=== PATIENT | female | born 1945 | race Caucasian/White ===

== ENCOUNTER 2016-11-17 11:11 | Day surgery (SDC) | payer MEDICARE ==
[2016-11-16 11:52] VITALS: BP 142/75
[2016-11-16 12:52] LABS: BLOOD UREA NITROGEN 19 mg/dL (7-18)
[~2016-11-17] VITALS: Ht 165.1 cm; Wt 116.8 kg
[~2016-11-17 11:11] MED LIST: ACET-76 PO; ANALPRAM TP; ATEN50TA41 PO; ATOR20TA PO; CALC-545 PO; CHOL10002 PO; DIAZ5TAB4 PO; ESOM40CA PO; FLUT12HF3 IH; FURO20TA3 PO; GABA100C PO; IMMODIUM PO; IPRA12.9 NS; LOSA100T6 PO; MAG PO; RIVA20TA PO; SENN1TAB67 PO; SIMV40TA3 PO; TRAM100T3 PO; TRAM50TA2 PO; VITAMIN D PO
== END 2016-11-17 12:30 | disposition home or self-care (01) ==
LOC: CACL 11:11 → EDSTATUS 13:00
PROVIDERS: ATTEND Internal Medicine Cardiovascular Disease
DX: I48.0 Paroxysmal atrial fibrillation (principal); Z53.8 Procedure and treatment not carried out for other reasons; E78.2 Mixed hyperlipidemia; Z86.73 Personal history of transient ischemic attack (TIA), and cerebral infarction without residual deficits; I10 Essential (primary) hypertension; G47.36 Sleep related hypoventilation in conditions classified elsewhere; I25.10 Atherosclerotic heart disease of native coronary artery without angina pectoris; E78.00 Pure hypercholesterolemia, unspecified; Z88.6 Allergy status to analgesic agent; Z88.3 Allergy status to other anti-infective agents; Z88.8 Allergy status to other drugs, medicaments and biological substances; Z91.018 Allergy to other foods; I48.92 Unspecified atrial flutter
CPT/HCPCS: 36415; 71020; 80048; 85025; 85610; 85730; 93005

== ENCOUNTER → 2017-01-21 | Outpatient (CLI) | payer MEDICARE | END | disposition home or self-care (01) | LOC: CVU 14:46 | PROVIDERS: ATTEND Internal Medicine Cardiovascular Disease | DX: E04.1 Nontoxic single thyroid nodule (principal); E07.9 Disorder of thyroid, unspecified; I10 Essential (primary) hypertension; E78.5 Hyperlipidemia, unspecified; E11.9 Type 2 diabetes mellitus without complications; I48.91 Unspecified atrial fibrillation; J45.909 Unspecified asthma, uncomplicated; K21.9 Gastro-esophageal reflux disease without esophagitis; E03.9 Hypothyroidism, unspecified; I25.2 Old myocardial infarction; G89.29 Other chronic pain; R53.83 Other fatigue | CPT/HCPCS: 76536; C8929 ==

== ENCOUNTER → 2017-02-02 | Outpatient (CLI) | payer MEDICARE ==
[~2017-02-02] MED LIST changes: +OMNIPAQUE 350 MG/ML, 100ML BOTTLE ONE
== END | disposition home or self-care (01) ==
LOC: CFH 14:30
PROVIDERS: ATTEND Physician Assistant
DX: E04.1 Nontoxic single thyroid nodule (principal)
CPT/HCPCS: 70491; Q9967

== ENCOUNTER 2017-02-15 09:00 | Inpatient (IN) | payer MEDICARE ==
[~2017-02-15] VITALS: Ht 165.1 cm; Wt 130.8 kg
[~2017-02-15 09:00] MED LIST changes: -OMNIPAQUE 350 MG/ML, 100ML BOTTLE ONE
[2017-02-15 10:20] VITALS: BP 92/65
[2017-02-15 10:27] VITALS: BP 124/75
[2017-02-15] MEDS ORDERED: DIAZ5TAB4 PO (10:51)
[2017-02-15] MEDS ORDERED: BISACODYL 10 MG SUPP PR PRN (11:00)
[2017-02-15] MEDS ORDERED: ONDANSETRON 2MG/ML, 2ML IVPush PRN (11:00)
[2017-02-15] MEDS ORDERED: SOTALOL 80MG TABLET PO SCH (11:00)
[2017-02-15] MEDS ORDERED: ZOLPIDEM 5MG TABLET PO PRN (11:00)
[2017-02-15] MEDS ORDERED: BISACODYL 5 MG EC TABLET PO PRN (11:00)
[2017-02-15 12:00] LABS: HEMATOCRIT 38.9 % (34.6-47.8); HEMOGLOBIN 12.7 g/dL (11.7-16.4)
[2017-02-15 12:12] LABS: BLOOD UREA NITROGEN 14 mg/dL (7-18)
[2017-02-15] MEDS: ACETAMINOPHEN 325 MG TABLET PO PRN (15:48)
[2017-02-15] MEDS ORDERED: GABAPENTIN 100 MG CAPSULE PO SCH ×2 (16:00)
[2017-02-15] MEDS: VITAMIN D 2000 UNIT PO SCH (16:23)
[2017-02-15] MEDS ORDERED: RIVAROXABAN 20 MG TABLET PO SCH (17:00)
[2017-02-15 17:33] VITALS: BP 144/91
[2017-02-15] MEDS: RIVAROXABAN 20 MG TABLET PO SCH (18:25)
[2017-02-15 19:30] VITALS: BP 114/81
[2017-02-15] MEDS: IPRATROPIUM NASAL 0.03%, 30ML NAS SCH (21:00)
[2017-02-15 21:04] VITALS: BP 126/81
[2017-02-15] MEDS: SOTALOL 80MG TABLET PO SCH (21:06)
[2017-02-15] MEDS: SODIUM CHLORIDE FLUSH 10ML SYR IVF SCH (21:06)
[2017-02-15] MEDS: GABAPENTIN 100 MG CAPSULE PO SCH (21:07)
[2017-02-15] MEDS: LOSARTAN 50MG TABLET PO SCH (21:07)
[2017-02-15] MEDS: ATORVASTATIN 40 MG TABLET PO SCH (21:07)
[2017-02-15] MEDS: DIAZEPAM 5 MG TABLET PO SCH (21:08)
[2017-02-15 23:08] LABS: IS PT STATUS REG ER OR PRE ER? NO
[2017-02-16 03:00] VITALS: BP 122/77
[2017-02-16 06:12] VITALS: BP 134/82
[2017-02-16] MEDS: SOTALOL 80MG TABLET PO SCH (06:14)
[2017-02-16] MEDS: ACETAMINOPHEN 325 MG TABLET PO PRN ×2 (06:20→15:09)
[2017-02-16 08:20] VITALS: BP 136/69
[2017-02-16] MEDS: IPRATROPIUM NASAL 0.03%, 30ML NAS SCH ×2 (08:23→21:00)
[2017-02-16] MEDS: SODIUM CHLORIDE FLUSH 10ML SYR IVF SCH ×2 (08:23→22:04)
[2017-02-16] MEDS: VITAMIN D 2000 UNIT PO SCH (08:24)
[2017-02-16] MEDS: GABAPENTIN 100 MG CAPSULE PO SCH ×3 (08:25→22:06)
[2017-02-16] MEDS ORDERED: LOSARTAN 50MG TABLET PO SCH (09:00)
[2017-02-16] MEDS ORDERED: RIVAROXABAN 20 MG TABLET PO SCH (09:00)
[2017-02-16] MEDS ORDERED: FUROSEMIDE 20 MG TABLET PO SCH (09:00)
[2017-02-16] MEDS: FUROSEMIDE 20 MG TABLET PO SCH (09:56)
[2017-02-16 13:35] VITALS: BP 123/83
[2017-02-16] MEDS: RIVAROXABAN 20 MG TABLET PO SCH (17:09)
[2017-02-16] MEDS: SOTALOL 120MG TABLET PO SCH (17:09)
[2017-02-16 19:35] VITALS: BP 113/76
[2017-02-16 22:01] VITALS: BP 139/79
[2017-02-16] MEDS: LOSARTAN 50MG TABLET PO SCH (22:05)
[2017-02-16] MEDS: ATORVASTATIN 40 MG TABLET PO SCH (22:05)
[2017-02-16] MEDS: DIAZEPAM 5 MG TABLET PO SCH (22:06)
[2017-02-17 01:00] VITALS: BP 120/80
[2017-02-17] MEDS: ACETAMINOPHEN 325 MG TABLET PO PRN ×3 (02:56→13:24)
[2017-02-17 05:57] VITALS: BP 115/76
[2017-02-17] MEDS: SOTALOL 120MG TABLET PO SCH ×2 (06:02→18:10)
[2017-02-17 08:49] VITALS: BP 125/85
[2017-02-17] MEDS: VITAMIN D 2000 UNIT PO SCH (09:00)
[2017-02-17] MEDS: FUROSEMIDE 20 MG TABLET PO SCH (09:28)
[2017-02-17] MEDS: SODIUM CHLORIDE FLUSH 10ML SYR IVF SCH ×2 (09:28→20:28)
[2017-02-17] MEDS: GABAPENTIN 100 MG CAPSULE PO SCH ×3 (09:28→20:32)
[2017-02-17] MEDS: IPRATROPIUM NASAL 0.03%, 30ML NAS SCH ×2 (09:28→20:29)
[2017-02-17 15:56] VITALS: BP 114/77
[2017-02-17 18:09] VITALS: BP 136/88
[2017-02-17] MEDS: RIVAROXABAN 20 MG TABLET PO SCH (18:10)
[2017-02-17 18:50] VITALS: BP 112/78
[2017-02-17] MEDS: ATORVASTATIN 40 MG TABLET PO SCH (20:29)
[2017-02-17] MEDS: LOSARTAN 50MG TABLET PO SCH (20:29)
[2017-02-17] MEDS: DIAZEPAM 5 MG TABLET PO SCH (20:31)
[2017-02-18 00:29] VITALS: BP 118/76
[2017-02-18] MEDS: ACETAMINOPHEN 325 MG TABLET PO PRN (00:41)
[2017-02-18] MEDS: SOTALOL 120MG TABLET PO SCH ×2 (06:30→17:37)
[2017-02-18] MEDS: FUROSEMIDE 20 MG TABLET PO SCH (08:12)
[2017-02-18] MEDS: GABAPENTIN 100 MG CAPSULE PO SCH ×2 (08:12→16:39)
[2017-02-18] MEDS: IPRATROPIUM NASAL 0.03%, 30ML NAS SCH ×2 (08:12→08:15)
[2017-02-18] MEDS: VITAMIN D 2000 UNIT PO SCH (08:13)
[2017-02-18 08:15] VITALS: BP 91/68
[2017-02-18] MEDS: SODIUM CHLORIDE FLUSH 10ML SYR IVF SCH (08:20)
[2017-02-18] MEDS ORDERED: PROPOFOL 10 MG/ML, 20ML ONE (11:33)
[2017-02-18] MEDS ORDERED: SOTA120T14 PO (13:37)
[2017-02-18 14:22] VITALS: BP 112/73
[2017-02-18] MEDS: RIVAROXABAN 20 MG TABLET PO SCH (16:39)
== END 2017-02-18 18:43 | disposition home or self-care (01) | DRG 309 ==
LOC: 5SO 09:47
PROVIDERS: ADMIT Internal Medicine Cardiovascular Disease; ATTEND Internal Medicine Cardiovascular Disease
PROC: 5A2204Z Restoration of Cardiac Rhythm, Single (ICD-10-PCS; principal; 2017-02-18 13:00)
DX: I48.0 Paroxysmal atrial fibrillation (principal); D68.59 Other primary thrombophilia; Z68.42 Body mass index [BMI] 45.0-49.9, adult; E78.5 Hyperlipidemia, unspecified; I10 Essential (primary) hypertension; K21.9 Gastro-esophageal reflux disease without esophagitis; Z79.01 Long term (current) use of anticoagulants; I25.2 Old myocardial infarction; Z87.891 Personal history of nicotine dependence
CPT/HCPCS: 36415; 71020; 80048; 80061; 84439; 84443; 84484; 85014; 85018; 92960; 93005; J2704

== ENCOUNTER 2018-08-14 13:56 | Emergency (ER) | payer MEDICARE ==
[~2018-08-14] VITALS: Ht 165.1 cm; Wt 108.0 kg
[~2018-08-14 13:56] MED LIST changes: +LOSA100T14 PO; -LOSA100T6 PO; +SOTA120T14 PO
--- NOTE | 2018-08-14 17:05 | NUR ---
TO ROOM FROM LOBBY.
--- NOTE | 2018-08-14 17:10 | NUR ---
PT PRESENTING TO ER FOR FEEDING TUBE COMING OUT THIS MORNING. WAS INSTRUCTED BY PCP TO COME TO ER FOR PLACEMENT OF SCOTT TO KEEP OPENING OPEN. NO PAIN REPORTED BY PT AT THIS TIME. VSS. CALL LIGHT WITHIN REACH. AWAITING ORDERS AT THIS TIME
--- NOTE | 2018-08-14 17:34 | NUR ---
MD TO BEDSIDE FOR ASSESSMENT.
[2018-08-14 17:42] VITALS: BP 118/69
--- NOTE | 2018-08-14 17:48 | NUR ---
DR CRAMER ATTEMPTED TO PLACE SCOTT IN PEG TUBE SITE WITHOUT SUCCESS. AWAITING ORDERS AT THIS TIME. WILL CONTINUE TO MONITOR
--- NOTE | 2018-08-14 18:19 | NUR ---
PT BEING TAKEN TO IR
--- NOTE | 2018-08-14 18:50 | NUR ---
PT BACK FROM IR
== END 2018-08-14 19:09 | disposition home or self-care (01) ==
LOC: ED 17:51
DX: Z43.1 Encounter for attention to gastrostomy (principal); Z86.73 Personal history of transient ischemic attack (TIA), and cerebral infarction without residual deficits; Z87.891 Personal history of nicotine dependence
CPT/HCPCS: 49440; 49450; 99284

== ENCOUNTER → 2018-08-23 | Outpatient (CLI) | payer MEDICARE | END | disposition home or self-care (01) | LOC: CVU 13:28 | PROVIDERS: ATTEND Internal Medicine Cardiovascular Disease | DX: I80.3 Phlebitis and thrombophlebitis of lower extremities, unspecified (principal); I25.10 Atherosclerotic heart disease of native coronary artery without angina pectoris; Z86.73 Personal history of transient ischemic attack (TIA), and cerebral infarction without residual deficits; Z85.3 Personal history of malignant neoplasm of breast | CPT/HCPCS: 93321; 93325; C8924 ==

== ENCOUNTER 2018-11-07 10:30 | Day surgery (SDC) | payer MEDICARE ==
[~2018-11-07] VITALS: Ht 165.1 cm; Wt 94.6 kg
[2018-11-07 10:50] VITALS: BP 138/85
[2018-11-07] MEDS ORDERED: LACTATED RINGERS 1,000 ML IV SCH (10:57)
[2018-11-07] MEDS ORDERED: PLEASE ENTER HEIGHT AND WEIGHT MC SCH (11:30)
== END 2018-11-07 12:30 | disposition home or self-care (01) ==
LOC: OUT 10:30
PROVIDERS: ATTEND Internal Medicine
DX: R63.3 Feeding difficulties (principal); Z86.73 Personal history of transient ischemic attack (TIA), and cerebral infarction without residual deficits; Z88.8 Allergy status to other drugs, medicaments and biological substances; Z88.6 Allergy status to analgesic agent; Z91.040 Latex allergy status
CPT/HCPCS: 93005

== ENCOUNTER → 2019-08-22 | Outpatient (CLI) | payer MEDICARE ==
[~2019-08-22] MED LIST changes: +SIMV40TA20 PO; -SIMV40TA3 PO
== END | disposition home or self-care (01) ==
LOC: CFH 14:15
PROVIDERS: ATTEND Nurse Practitioner Primary Care
DX: Z13.820 Encounter for screening for osteoporosis (principal); E78.5 Hyperlipidemia, unspecified; R53.83 Other fatigue; E05.90 Thyrotoxicosis, unspecified without thyrotoxic crisis or storm; E55.9 Vitamin D deficiency, unspecified; I10 Essential (primary) hypertension; G45.4 Transient global amnesia; G89.29 Other chronic pain; M79.2 Neuralgia and neuritis, unspecified; K59.00 Constipation, unspecified; N95.9 Unspecified menopausal and perimenopausal disorder; Z79.899 Other long term (current) drug therapy; Z93.3 Colostomy status; Z93.1 Gastrostomy status; Z87.891 Personal history of nicotine dependence
CPT/HCPCS: 77080

== ENCOUNTER → 2020-01-01 | Outpatient (CLI) | payer MEDICARE | END | disposition home or self-care (01) | LOC: WOUND 14:12 | PROVIDERS: ATTEND Nurse Practitioner Family | DX: Z93.3 Colostomy status (principal); G89.29 Other chronic pain; I48.91 Unspecified atrial fibrillation; R27.0 Ataxia, unspecified; I10 Essential (primary) hypertension; E78.5 Hyperlipidemia, unspecified; E05.90 Thyrotoxicosis, unspecified without thyrotoxic crisis or storm; F41.9 Anxiety disorder, unspecified; J45.909 Unspecified asthma, uncomplicated; F32.9 Major depressive disorder, single episode, unspecified; K21.9 Gastro-esophageal reflux disease without esophagitis; G62.9 Polyneuropathy, unspecified; Z85.3 Personal history of malignant neoplasm of breast; Z90.49 Acquired absence of other specified parts of digestive tract; Z90.710 Acquired absence of both cervix and uterus; Z79.899 Other long term (current) drug therapy; Z91.040 Latex allergy status; Z79.82 Long term (current) use of aspirin; Z87.891 Personal history of nicotine dependence; Z86.73 Personal history of transient ischemic attack (TIA), and cerebral infarction without residual deficits | CPT/HCPCS: G0463 ==

== ENCOUNTER → 2020-01-15 | Outpatient (CLI) | payer MEDICARE | END | disposition home or self-care (01) | LOC: WOUND 13:01 | PROVIDERS: ATTEND Nurse Practitioner Family | DX: Z93.3 Colostomy status (principal); G89.29 Other chronic pain; I48.91 Unspecified atrial fibrillation; R27.0 Ataxia, unspecified; I10 Essential (primary) hypertension; E78.5 Hyperlipidemia, unspecified; E05.90 Thyrotoxicosis, unspecified without thyrotoxic crisis or storm; F41.9 Anxiety disorder, unspecified; J45.909 Unspecified asthma, uncomplicated; F32.9 Major depressive disorder, single episode, unspecified; K21.9 Gastro-esophageal reflux disease without esophagitis; G62.9 Polyneuropathy, unspecified; Z85.3 Personal history of malignant neoplasm of breast; Z90.49 Acquired absence of other specified parts of digestive tract; Z90.710 Acquired absence of both cervix and uterus; Z79.899 Other long term (current) drug therapy; Z91.040 Latex allergy status; Z79.82 Long term (current) use of aspirin; Z87.891 Personal history of nicotine dependence; Z86.73 Personal history of transient ischemic attack (TIA), and cerebral infarction without residual deficits | CPT/HCPCS: G0463 ==

== ENCOUNTER → 2020-06-13 | Outpatient (CLI) | payer MEDICARE ==
[~2020-06-13] MED LIST changes: -CALC-545 PO; +CALC-780 PO
== END | disposition home or self-care (01) ==
LOC: CFH 13:39
PROVIDERS: ATTEND Internal Medicine Cardiovascular Disease
DX: I08.8 Other rheumatic multiple valve diseases (principal); I27.20 Pulmonary hypertension, unspecified; I25.10 Atherosclerotic heart disease of native coronary artery without angina pectoris
CPT/HCPCS: 93306

== ENCOUNTER → 2020-06-24 | Outpatient (CLI) | payer MEDICARE ==
[2020-06-24 17:11] LABS: BASOPHILS % (AUTO) 1 % (0-1); EOSINOPHILS % (AUTO) 4 % (1-7); LYMPHOCYTES % (AUTO) 30 % (22-44); MEAN CORPUSCULAR HEMOGLOBIN 24.4 pg (27.0-34.8); MEAN CORPUSCULAR HGB CONC 31.1 g/dL (32.4-35.8); MEAN PLATELET VOLUME 8.5 fL (7.4-10.4); MONOCYTES % (AUTO) 8 % (2-9); NEUTROPHILS % (AUTO) 56 % (42-75); PLATELET COUNT 287 x10^3/uL (130-400); RED BLOOD COUNT 4.74 x10^6/uL (3.82-5.3); RED CELL DISTRIBUTION WIDTH 18.5 % (9.6-15.2)
[2020-06-24 17:23] LABS: ALANINE AMINOTRANSFERASE 10 U/L (12-78); ALBUMIN 2.9 g/dL (3.4-5.0); ANION GAP 4 mmol/L (5-15); CHLORIDE 100 mmol/L (98-107); CHOLESTEROL, TOTAL 144 mg/dL (140-239); CREATININE 0.75 mg/dL (0.55-1.02)
[2020-06-24 17:33] LABS: ALKALINE PHOSPHATASE 101 U/L (45-117); BILIRUBIN,TOTAL 0.9 mg/dL (0.2-1.0); CHOL/HDL RATIO 2.9; HDL CHOL % 34 % (28-40); HDL CHOLESTEROL (DIRECT) 49 mg/dL (40-60); LDL CHOLESTEROL,CALCULATED 68 mg/dL (54-169); LDL/HDL RATIO 1.4 (0.5-3.0); TOTAL PROTEIN 7.1 g/dL (6.4-8.2); TRIGLYCERIDES 133 mg/dL (50-200); VLDL CHOLESTEROL 27 mg/dL (0-25)
[2020-06-24 17:35] LABS: MD NO
== END | disposition home or self-care (01) ==
LOC: RAD 16:10
PROVIDERS: ATTEND Internal Medicine
DX: C50.919 Malignant neoplasm of unspecified site of unspecified female breast (principal); R09.02 Hypoxemia; R41.89 Other symptoms and signs involving cognitive functions and awareness; I63.9 Cerebral infarction, unspecified; I25.2 Old myocardial infarction; I10 Essential (primary) hypertension; M19.041 Primary osteoarthritis, right hand; G89.29 Other chronic pain; E78.5 Hyperlipidemia, unspecified; E11.9 Type 2 diabetes mellitus without complications; N28.9 Disorder of kidney and ureter, unspecified; F41.9 Anxiety disorder, unspecified; J45.909 Unspecified asthma, uncomplicated; K21.9 Gastro-esophageal reflux disease without esophagitis; H91.90 Unspecified hearing loss, unspecified ear; E05.90 Thyrotoxicosis, unspecified without thyrotoxic crisis or storm; M25.562 Pain in left knee; G56.02 Carpal tunnel syndrome, left upper limb
CPT/HCPCS: 36415; 71046; 80053; 80061; 83036; 84443; 85025

== ENCOUNTER → 2020-08-07 | Outpatient (CLI) | payer MEDICARE | END | disposition home or self-care (01) | LOC: RAD 14:47 | PROVIDERS: ATTEND Internal Medicine | DX: J90 Pleural effusion, not elsewhere classified (principal); J98.11 Atelectasis; I50.32 Chronic diastolic (congestive) heart failure; I48.20 Chronic atrial fibrillation, unspecified; R09.02 Hypoxemia; J45.909 Unspecified asthma, uncomplicated; E11.9 Type 2 diabetes mellitus without complications; I11.0 Hypertensive heart disease with heart failure | CPT/HCPCS: 71046 ==

== ENCOUNTER 2020-08-12 15:25 | Inpatient (IN) | payer MEDICARE ==
[~2020-08-12] VITALS: Ht 165.1 cm; Wt 102.9 kg
--- NOTE | 2020-08-12 16:08 | NUR ---
Pt undressed with assitance, laying in bed, connected to all monitors. Call light in reach. Pt states this RN removed her earings. Pt educated that this did not occur, pt did not present to the ER with earrings.
[2020-08-12] MEDS ORDERED: SODIUM CHLORIDE FLUSH 10ML SYR IVF ONE (17:00)
[2020-08-12 17:13] LABS: ALANINE AMINOTRANSFERASE 508 U/L (12-78); ALBUMIN 2.8 g/dL (3.4-5.0); ANION GAP 8 mmol/L (5-15); CHLORIDE 92 mmol/L (98-107); CREATININE 2.03 mg/dL (0.55-1.02)
[2020-08-12 17:20] LABS: ALKALINE PHOSPHATASE 117 U/L (45-117); TOTAL PROTEIN 6.2 g/dL (6.4-8.2); TROPONIN I < 0.015 ng/mL (0.000-0.045)
[2020-08-12] MEDS ORDERED: DEXTROSE 50%, 50ML SYRINGE IVPush ONE (17:30)
[2020-08-12 17:31] LABS: BASOPHILS % (AUTO) 1 % (0-1); EOSINOPHILS % (AUTO) 0 % (1-7); LYMPHOCYTES % (AUTO) 18 % (22-44); MEAN CORPUSCULAR HEMOGLOBIN 20.8 pg (27.0-34.8); MEAN CORPUSCULAR HGB CONC 29.9 g/dL (32.4-35.8); MEAN PLATELET VOLUME 8.9 fL (7.4-10.4); MONOCYTES % (AUTO) 12 % (2-9); NEUTROPHILS % (AUTO) 70 % (42-75); PLATELET COUNT 254 x10^3/uL (130-400); RED BLOOD COUNT 4.81 x10^6/uL (3.82-5.3); RED CELL DISTRIBUTION WIDTH 20.9 % (9.6-15.2)
[2020-08-12] MEDS ORDERED: DEXTROSE 50%, 50ML SYRINGE ONE (17:31)
[2020-08-12 17:32] LABS: MD MORPH REVIEW ONLY
--- NOTE | 2020-08-12 17:56 | NUR ---
No hx of DM. Pt not symptomatic prior to D50 and juice, denies any changes after receiving sugar. Pt given orange juice and 1/2 amp of D50 as ordered.
[2020-08-12 18:13] LABS: ANISOCYTOSIS 1+
[2020-08-12 18:14] LABS: POLYCHROMASIA 1+
[2020-08-12 18:15] LABS: MICROCYTOSIS 1+
[2020-08-12 18:16] LABS: HYPOCHROMIA 2+; STOMATOCYTES 1+
[2020-08-12 18:18] LABS: OVALOCYTES 1+
[2020-08-12 18:22] LABS: <PLATELET ESTIMATE> ADEQUATE
[2020-08-12] MEDS ORDERED: CEFTRIAXONE PMX 1GM/50ML 50 ML ONE (18:24)
[2020-08-12] MEDS ORDERED: FUROSEMIDE 20 MG/2 ML ONE (18:24)
[2020-08-12] MEDS ORDERED: CEFTRIAXONE PMX 1GM/50ML 50 ML IVPB ONE (18:30)
[2020-08-12] MEDS ORDERED: FUROSEMIDE 20 MG/2 ML IV ONE (18:30)
[2020-08-12] MEDS ORDERED: AZITHROMYCIN 500 MG in SODIUM CHLORIDE 0.9% 250 ML IV ONE (18:30)
--- NOTE | 2020-08-12 18:30 | NUR ---
Awaiting 2nd draw.
--- NOTE | 2020-08-12 19:08 | NUR ---
Report to DASH Conn.
--- NOTE | 2020-08-12 19:39 | NUR ---
COVID SWAB PERFORMED AND WALKED DOWN TO LAB. AND PATIENT NOTIFIED OF WHILE TEST PENDING THAT SHE WILL NOT BE ALLOWED VISITORS BUT IF TEST COMES BACK NEGATIVE THAT SHE WILL BE ABLE TO HAVE VISITORS FROM 3PM-8PM. ALSO, IF IT COMES BACK POSITIVE THAT SHE WILL NOT BE ALLOWED VISITORS. BOTH PATIENT AND ACKNOWLEDGE THIS
[2020-08-12] MEDS ORDERED: DOCUSATE 100 MG CAPSULE PO PRN (20:00)
[2020-08-12] MEDS ORDERED: hydrALAzine 20 MG/ML, 1ML IVPush PRN (20:00)
[2020-08-12] MEDS ORDERED: PROMETHAZINE 25 MG/ML, 1ML IM PRN (20:00)
[2020-08-12] MEDS ORDERED: ACETAMINOPHEN 325 MG TABLET PO PRN (20:00)
[2020-08-12] MEDS ORDERED: POLYETHYLENE GLYCOL 17 GM PACKET PO PRN (20:00)
[2020-08-12] MEDS ORDERED: ONDANSETRON 2MG/ML, 2ML IVPush PRN (20:00)
[2020-08-12] MEDS ORDERED: ONDANSETRON ODT 4 MG PO PRN (20:00)
[2020-08-12] MEDS ORDERED: BISACODYL 10 MG SUPP PR PRN (20:00)
[2020-08-12] MEDS ORDERED: ESCI20TA8 PO (20:14)
[2020-08-12] MEDS ORDERED: POLY17PO5 PO (20:14)
[2020-08-12] MEDS ORDERED: ASPI-963 PO (20:14)
[2020-08-12] MEDS ORDERED: METH5TAB6 PO (20:14)
[2020-08-12] MEDS ORDERED: MONT10TA17 PO (20:14)
[2020-08-12] MEDS ORDERED: DEXTROSE 4 GM TAB.CHEW PO PRN (20:30)
[2020-08-12] MEDS ORDERED: FUROSEMIDE 20 MG/2 ML IV SCH (20:30)
[2020-08-12] MEDS ORDERED: DEXTROSE 50%, 50ML SYRINGE IVPush PRN (20:30)
[2020-08-12] MEDS ORDERED: GLUCAGON 1 MG IM PRN (20:30)
--- NOTE | 2020-08-12 20:30 | NUR ---
PATIENT RESTING IN BED IN NAD. CALL [place] IN REACH. LLQ OSTOMY HAS NO APPLIANCE DUE TO PATIENT STATING THAT SHE HAS NOT BEEN ABLE TO WEAR APPLIANCE FOR QUITE SOME TIME DUE TO BLOWING OFF DUE TO ABDOMEN CONTOUR. PAD SEEN OVER SITE WITH NO STOOL EXITING STOMA. PERISKIN NORMAL AND STOMA BUD-LIKE AND RED WITH MINIMAL PERTRUSION
[2020-08-12] MEDS ORDERED: ATORVASTATIN 20 MG TABLET PO SCH (21:00)
--- NOTE | 2020-08-12 21:26 | NUR ---
PATIENT BEING TRANSFERRED TO FLOOR AT THIS TIME. VS REMAIN STABLE ON 2L VIA NC
--- NOTE | 2020-08-12 21:27 | NUR ---
Report given to DASH Gamboa. Patient to be transferred to room 488.
[2020-08-12 21:44] VITALS: BP 117/77
[2020-08-13] MEDS: SODIUM CHLORIDE FLUSH 10ML SYR IVF SCH ×3 (00:45→21:00)
[2020-08-13 00:59] VITALS: BP 112/73
[2020-08-13 02:23] VITALS: BP 109/72
[2020-08-13 05:15] VITALS: BP 92/58
[2020-08-13 05:16] LABS: MEAN CORPUSCULAR HEMOGLOBIN 20.8 pg (27.0-34.8); MEAN CORPUSCULAR HGB CONC 30.4 g/dL (32.4-35.8); MEAN PLATELET VOLUME 8.9 fL (7.4-10.4); PLATELET COUNT 243 x10^3/uL (130-400); RED BLOOD COUNT 4.81 x10^6/uL (3.82-5.3); RED CELL DISTRIBUTION WIDTH 20.9 % (9.6-15.2)
[2020-08-13 05:27] LABS: ALBUMIN 2.9 g/dL (3.4-5.0); ANION GAP 6 mmol/L (5-15); CALCIUM 9.6 mg/dL (8.5-10.1); CHLORIDE 95 mmol/L (98-107)
[2020-08-13 05:55] LABS: ALANINE AMINOTRANSFERASE 446 U/L (12-78); ALKALINE PHOSPHATASE 107 U/L (45-117); BILIRUBIN,TOTAL 1.3 mg/dL (0.2-1.0); CHOL/HDL RATIO 2.7; CHOLESTEROL, TOTAL 62 mg/dL (140-239); CREATININE 1.62 mg/dL (0.55-1.02); HDL CHOL % 37 % (28-40); HDL CHOLESTEROL (DIRECT) 23 mg/dL (40-60); LDL CHOLESTEROL,CALCULATED 26 mg/dL (54-169); LDL/HDL RATIO 1.1 (0.5-3.0); TRIGLYCERIDES 67 mg/dL (50-200); VLDL CHOLESTEROL 13 mg/dL (0-25)
[2020-08-13 06:09] LABS: MD YES
[2020-08-13 06:11] LABS: ANISOCYTOSIS 2+; BAND#(MANUAL) 0.09 x10^3/uL; BANDS%(MANUAL) 1 % (0-7); EOS#(MANUAL) 0.26 x10^3/uL (0.0-0.4); EOS% (MANUAL) 3 % (1-7); HYPOCHROMIA 2+; LYMPH#(MANUAL) 1.39 x10^3/uL (1-3.4); LYMPHS% (MANUAL) 16 % (22-44); MICROCYTOSIS 2+; MONOS#(MANUAL) 0.44 x10^3/uL (0.3-2.7); MONOS% (MANUAL) 5 % (2-9); SEG#(MANUAL) 6.53 x10^3/uL (1.8-6.8); SEGS% (MANUAL) 75 % (42-75)
[2020-08-13 06:12] LABS: <PLATELET ESTIMATE> ADEQUATE; LARGE PLATELETS 1+; OVALOCYTES 1+; POLYCHROMASIA 1+
[2020-08-13 06:42] VITALS: BP 104/67
[2020-08-13] MEDS ORDERED: FUROSEMIDE 20 MG/2 ML IV SCH ×2 (07:30→09:00)
[2020-08-13] MEDS ORDERED: GABAPENTIN 100 MG CAPSULE PO SCH (09:00)
[2020-08-13] MEDS ORDERED: MAGNESIUM SULFATE PMX 4GM/100M 100 ML IVPB ONE (09:30)
[2020-08-13] MEDS: CHOLECALCIFEROL 1,000 UNIT TABLET PO SCH (09:45)
[2020-08-13] MEDS: PANTOPRAZOLE 20MG TABLET PO SCH (09:46)
[2020-08-13] MEDS: ASPIRIN 81 MG TABLET EC PO SCH (09:46)
[2020-08-13] MEDS: MONTELUKAST 10 MG TABLET PO SCH (09:46)
[2020-08-13] MEDS: ESCITALOPRAM 10MG TABLET PO SCH (09:46)
[2020-08-13] MEDS: RIVAROXABAN 20 MG TABLET PO SCH (09:46)
[2020-08-13 12:11] VITALS: BP 98/63
[2020-08-13] MEDS ORDERED: GABA300C PO (12:18)
[2020-08-13] MEDS: CARVEDILOL 3.125 MG TABLET PO SCH (17:19)
[2020-08-13] MEDS: CEFTRIAXONE PMX 2GM/50ML 50 ML IVPB SCH (17:19)
[2020-08-13] MEDS ORDERED: AZITHROMYCIN 500 MG in SODIUM CHLORIDE 0.9% 250 ML IV SCH (18:00)
[2020-08-13 19:29] VITALS: BP 102/68
[2020-08-13] MEDS: FUROSEMIDE 20 MG/2 ML IV SCH (21:05)
[2020-08-13] MEDS: GABAPENTIN 300 MG CAPSULE PO SCH (21:05)
[2020-08-14 00:42] VITALS: BP 138/77
[2020-08-14 00:59] LABS: CHLORIDE,URINE RANDOM 56 mmol/L; POTASSIUM,URINE RANDOM 7 mmol/L; SODIUM,URINE RANDOM 58 mmol/L
[2020-08-14 01:04] LABS: MICROSCOPIC AUTO
[2020-08-14] MEDS: CARVEDILOL 3.125 MG TABLET PO SCH ×2 (05:27→17:40)
[2020-08-14 07:20] VITALS: BP 135/89
[2020-08-14 08:13] LABS: ANION GAP 6 mmol/L (5-15); CALCIUM 8.8 mg/dL (8.5-10.1); CHLORIDE 97 mmol/L (98-107)
[2020-08-14 08:15] LABS: CREATININE 0.87 mg/dL (0.55-1.02)
[2020-08-14 08:34] LABS: BASOPHILS % (AUTO) 1 % (0-1); EOSINOPHILS % (AUTO) 4 % (1-7); LYMPHOCYTES % (AUTO) 28 % (22-44); MEAN CORPUSCULAR HEMOGLOBIN 20.7 pg (27.0-34.8); MEAN CORPUSCULAR HGB CONC 30.1 g/dL (32.4-35.8); MEAN PLATELET VOLUME 9.3 fL (7.4-10.4); MONOCYTES % (AUTO) 14 % (2-9); NEUTROPHILS % (AUTO) 52 % (42-75); PLATELET COUNT 191 x10^3/uL (130-400); RED BLOOD COUNT 4.35 x10^6/uL (3.82-5.3); RED CELL DISTRIBUTION WIDTH 20.3 % (9.6-15.2)
[2020-08-14 08:44] LABS: MD NO
[2020-08-14] MEDS: DOXYCYCLINE 100MG CAP PO SCH ×2 (09:00→21:00)
[2020-08-14] MEDS: METHIMAZOLE 5 MG TAB PO SCH (09:41)
[2020-08-14] MEDS: GABAPENTIN 300 MG CAPSULE PO SCH ×3 (09:41→21:46)
[2020-08-14] MEDS: PANTOPRAZOLE 20MG TABLET PO SCH (09:42)
[2020-08-14] MEDS: MONTELUKAST 10 MG TABLET PO SCH (09:43)
[2020-08-14] MEDS: ASPIRIN 81 MG TABLET EC PO SCH (09:44)
[2020-08-14] MEDS: CHOLECALCIFEROL 1,000 UNIT TABLET PO SCH (09:44)
[2020-08-14] MEDS: ESCITALOPRAM 10MG TABLET PO SCH (09:44)
[2020-08-14] MEDS: RIVAROXABAN 20 MG TABLET PO SCH (09:44)
[2020-08-14] MEDS: FUROSEMIDE 20 MG/2 ML IV SCH (09:46)
[2020-08-14] MEDS: SODIUM CHLORIDE FLUSH 10ML SYR IVF SCH ×2 (09:53→21:48)
[2020-08-14 12:29] VITALS: BP 113/65
[2020-08-14] MEDS ORDERED: POTASSIUM CHLORIDE 20 MEQ TAB.ER.PRT ONE (13:26)
[2020-08-14] MEDS: POTASSIUM CHLORIDE 20 MEQ TAB.ER.PRT PO SCH ×3 (13:32→21:48)
[2020-08-14] MEDS: CEFTRIAXONE PMX 2GM/50ML 50 ML IVPB SCH (17:41)
[2020-08-14 19:36] VITALS: BP 122/70
[2020-08-14] MEDS: FUROSEMIDE 40 MG/4 ML IV SCH (21:48)
[2020-08-15 01:05] VITALS: BP 105/62
[2020-08-15] MEDS: CARVEDILOL 3.125 MG TABLET PO SCH ×2 (05:44→21:00)
[2020-08-15 06:44] LABS: BASOPHILS % (AUTO) 1 % (0-1); EOSINOPHILS % (AUTO) 5 % (1-7); LYMPHOCYTES % (AUTO) 33 % (22-44); MEAN CORPUSCULAR HEMOGLOBIN 20.7 pg (27.0-34.8); MEAN CORPUSCULAR HGB CONC 30.2 g/dL (32.4-35.8); MEAN PLATELET VOLUME 8.6 fL (7.4-10.4); MONOCYTES % (AUTO) 14 % (2-9); NEUTROPHILS % (AUTO) 47 % (42-75); PLATELET COUNT 197 x10^3/uL (130-400); RED BLOOD COUNT 4.37 x10^6/uL (3.82-5.3); RED CELL DISTRIBUTION WIDTH 20.5 % (9.6-15.2)
[2020-08-15 06:45] LABS: MD NO
[2020-08-15 06:59] LABS: ALBUMIN 2.3 g/dL (3.4-5.0); ANION GAP 3 mmol/L (5-15); CALCIUM 8.4 mg/dL (8.5-10.1); CHLORIDE 99 mmol/L (98-107)
[2020-08-15] MEDS ORDERED: MAGNESIUM SULFATE PMX 2GM/50ML 50 ML IV ONE (07:00)
[2020-08-15 07:03] VITALS: BP 138/73
[2020-08-15 07:04] LABS: ALANINE AMINOTRANSFERASE 203 U/L (12-78); ALKALINE PHOSPHATASE 86 U/L (45-117); BILIRUBIN,TOTAL 0.9 mg/dL (0.2-1.0); CREATININE 0.65 mg/dL (0.55-1.02); TOTAL PROTEIN 5.3 g/dL (6.4-8.2)
[2020-08-15] MEDS: DOXYCYCLINE 100MG CAP PO SCH ×2 (09:00→20:55)
[2020-08-15] MEDS: FUROSEMIDE 40 MG/4 ML IV SCH ×2 (09:31→20:54)
[2020-08-15] MEDS: MONTELUKAST 10 MG TABLET PO SCH (09:32)
[2020-08-15] MEDS: ESCITALOPRAM 10MG TABLET PO SCH (09:32)
[2020-08-15] MEDS: CHOLECALCIFEROL 1,000 UNIT TABLET PO SCH (09:32)
[2020-08-15] MEDS: POTASSIUM CHLORIDE 20 MEQ TAB.ER.PRT PO SCH ×3 (09:32→20:55)
[2020-08-15] MEDS: GABAPENTIN 300 MG CAPSULE PO SCH ×3 (09:33→20:55)
[2020-08-15] MEDS: LISINOPRIL 5 MG TABLET PO SCH (09:33)
[2020-08-15] MEDS: ASPIRIN 81 MG TABLET EC PO SCH (09:34)
[2020-08-15] MEDS: SODIUM CHLORIDE FLUSH 10ML SYR IVF SCH ×2 (09:34→21:00)
[2020-08-15] MEDS: PANTOPRAZOLE 20MG TABLET PO SCH (09:35)
[2020-08-15] MEDS: RIVAROXABAN 20 MG TABLET PO SCH (09:35)
[2020-08-15 12:24] VITALS: BP 134/70
[2020-08-15 18:30] VITALS: BP 98/53
[2020-08-15] MEDS: CEFTRIAXONE PMX 2GM/50ML 50 ML IVPB SCH (18:39)
[2020-08-15 18:56] VITALS: BP 97/60
[2020-08-15 21:12] VITALS: BP 112/70
[2020-08-15] MEDS ORDERED: MAGNESIUM SULFATE PMX 4GM/100M 100 ML IVPB ONE (21:30)
[2020-08-16 01:00] VITALS: BP 96/63
[2020-08-16 05:51] VITALS: BP 103/67
[2020-08-16] MEDS: CARVEDILOL 3.125 MG TABLET PO SCH ×2 (05:53→18:22)
[2020-08-16 06:58] VITALS: BP 90/60
[2020-08-16 08:26] LABS: ANION GAP 2 mmol/L (5-15); CALCIUM 8.7 mg/dL (8.5-10.1); CHLORIDE 100 mmol/L (98-107); CREATININE 0.57 mg/dL (0.55-1.02)
[2020-08-16 08:37] LABS: BASOPHILS % (AUTO) 1 % (0-1); EOSINOPHILS % (AUTO) 7 % (1-7); LYMPHOCYTES % (AUTO) 31 % (22-44); MD NO; MEAN CORPUSCULAR HEMOGLOBIN 20.6 pg (27.0-34.8); MEAN CORPUSCULAR HGB CONC 29.9 g/dL (32.4-35.8); MEAN PLATELET VOLUME 9.3 fL (7.4-10.4); MONOCYTES % (AUTO) 14 % (2-9); NEUTROPHILS % (AUTO) 46 % (42-75); PLATELET COUNT 211 x10^3/uL (130-400); RED BLOOD COUNT 4.76 x10^6/uL (3.82-5.3); RED CELL DISTRIBUTION WIDTH 20.8 % (9.6-15.2)
[2020-08-16] MEDS: DOXYCYCLINE 100MG CAP PO SCH ×2 (09:00→20:37)
[2020-08-16] MEDS: LISINOPRIL 5 MG TABLET PO SCH (09:00)
[2020-08-16] MEDS: FUROSEMIDE 40 MG/4 ML IV SCH ×2 (09:00→20:36)
[2020-08-16] MEDS: POTASSIUM CHLORIDE 20 MEQ TAB.ER.PRT PO SCH ×3 (10:42→20:37)
[2020-08-16] MEDS: RIVAROXABAN 20 MG TABLET PO SCH (10:42)
[2020-08-16] MEDS: GABAPENTIN 300 MG CAPSULE PO SCH ×3 (10:43→20:37)
[2020-08-16] MEDS: MONTELUKAST 10 MG TABLET PO SCH (10:43)
[2020-08-16] MEDS: PANTOPRAZOLE 20MG TABLET PO SCH (10:43)
[2020-08-16] MEDS: ASPIRIN 81 MG TABLET EC PO SCH (10:43)
[2020-08-16] MEDS: METHIMAZOLE 5 MG TAB PO SCH (10:44)
[2020-08-16] MEDS: CHOLECALCIFEROL 1,000 UNIT TABLET PO SCH (10:44)
[2020-08-16] MEDS: ESCITALOPRAM 10MG TABLET PO SCH (10:44)
[2020-08-16] MEDS: SODIUM CHLORIDE FLUSH 10ML SYR IVF SCH ×2 (10:49→20:45)
[2020-08-16 13:19] VITALS: BP 97/64
[2020-08-16 18:25] VITALS: BP 118/71
[2020-08-16] MEDS: CEFTRIAXONE PMX 2GM/50ML 50 ML IVPB SCH (18:46)
[2020-08-16 20:35] VITALS: BP 93/64
[2020-08-17] VITALS (7 sets, daily range): BP systolic 93–155; BP diastolic 50–74
[2020-08-17 06:39] LABS: ANION GAP 3 mmol/L (5-15); BASOPHILS % (AUTO) 1 % (0-1); CALCIUM 8.7 mg/dL (8.5-10.1); CHLORIDE 104 mmol/L (98-107); CREATININE 0.51 mg/dL (0.55-1.02); EOSINOPHILS % (AUTO) 6 % (1-7); LYMPHOCYTES % (AUTO) 31 % (22-44); MEAN CORPUSCULAR HEMOGLOBIN 20.6 pg (27.0-34.8); MONOCYTES % (AUTO) 10 % (2-9); NEUTROPHILS % (AUTO) 52 % (42-75); PLATELET COUNT 149 x10^3/uL (130-400); RED BLOOD COUNT 4.49 x10^6/uL (3.82-5.3); RED CELL DISTRIBUTION WIDTH 20.4 % (9.6-15.2)
[2020-08-17] MEDS: CARVEDILOL 3.125 MG TABLET PO SCH ×2 (06:39→18:00)
[2020-08-17 06:43] LABS: MD NO; MEAN CORPUSCULAR HGB CONC 29.3 g/dL (32.4-35.8)
[2020-08-17] MEDS ORDERED: ACETAMINOPHEN 325 MG TABLET PO PRN (09:00)
[2020-08-17] MEDS: POTASSIUM CHLORIDE 20 MEQ TAB.ER.PRT PO SCH (09:00)
[2020-08-17] MEDS: ESCITALOPRAM 10MG TABLET PO SCH (09:11)
[2020-08-17] MEDS: LACTOBACILLUS CHEW TABLET PO SCH ×3 (09:11→21:13)
[2020-08-17] MEDS: FUROSEMIDE 40 MG TABLET PO SCH ×2 (09:11→17:00)
[2020-08-17] MEDS: LISINOPRIL 5 MG TABLET PO SCH (09:11)
[2020-08-17] MEDS: CHOLECALCIFEROL 1,000 UNIT TABLET PO SCH (09:11)
[2020-08-17] MEDS: GABAPENTIN 300 MG CAPSULE PO SCH ×3 (09:11→21:13)
[2020-08-17] MEDS: ASPIRIN 81 MG TABLET EC PO SCH (09:11)
[2020-08-17] MEDS: RIVAROXABAN 20 MG TABLET PO SCH (09:11)
[2020-08-17] MEDS: SODIUM CHLORIDE FLUSH 10ML SYR IVF SCH ×2 (09:12→21:00)
[2020-08-17] MEDS: PANTOPRAZOLE 20MG TABLET PO SCH (09:12)
[2020-08-17] MEDS: MONTELUKAST 10 MG TABLET PO SCH (09:13)
[2020-08-18 01:03] VITALS: BP 110/72
[2020-08-18] MEDS: CARVEDILOL 3.125 MG TABLET PO SCH (05:40)
[2020-08-18 06:12] LABS: FREE T4 (FREE THYROXINE) 1.09 ng/dL (0.76-1.46)
[2020-08-18 06:38] VITALS: BP 133/63
[2020-08-18] MEDS ORDERED: FERROUS SULFATE 325 MG TABLET PO SCH (08:00)
[2020-08-18 08:55] LABS: ANION GAP 4 mmol/L (5-15); CALCIUM 9.6 mg/dL (8.5-10.1); CHLORIDE 103 mmol/L (98-107); CREATININE 0.53 mg/dL (0.55-1.02)
[2020-08-18] MEDS: SODIUM CHLORIDE FLUSH 10ML SYR IVF SCH (09:00)
[2020-08-18] MEDS: ASPIRIN 81 MG TABLET EC PO SCH (09:27)
[2020-08-18] MEDS: METHIMAZOLE 5 MG TAB PO SCH (09:27)
[2020-08-18] MEDS: CHOLECALCIFEROL 1,000 UNIT TABLET PO SCH (09:27)
[2020-08-18] MEDS: FUROSEMIDE 40 MG TABLET PO SCH (09:27)
[2020-08-18] MEDS: LACTOBACILLUS CHEW TABLET PO SCH (09:28)
[2020-08-18] MEDS: RIVAROXABAN 20 MG TABLET PO SCH (09:28)
[2020-08-18] MEDS: GABAPENTIN 300 MG CAPSULE PO SCH (09:28)
[2020-08-18] MEDS: LISINOPRIL 5 MG TABLET PO SCH (09:28)
[2020-08-18] MEDS: POTASSIUM CHLORIDE 20 MEQ TAB.ER.PRT PO SCH (09:28)
[2020-08-18] MEDS: PANTOPRAZOLE 20MG TABLET PO SCH (09:29)
[2020-08-18] MEDS: ESCITALOPRAM 10MG TABLET PO SCH (09:29)
[2020-08-18] MEDS: MONTELUKAST 10 MG TABLET PO SCH (09:29)
[2020-08-18] MEDS ORDERED: POTA20TA6 PO (11:02)
[2020-08-18] MEDS ORDERED: FURO40TA6 PO (11:02)
[2020-08-18] MEDS ORDERED: LISI5TAB7 PO (11:02)
[2020-08-18] MEDS ORDERED: ACID1TAB7 PO (11:02)
[2020-08-18] MEDS ORDERED: CARV3.1212 PO (11:02)
[2020-08-18] MEDS ORDERED: FERR-51 PO (11:02)
[2020-08-18 11:15] VITALS: BP 107/64
== END 2020-08-18 15:30 | disposition home or self-care (01) | DRG 291 ==
LOC: ED 18:19 → EDIP 18:20 → 4EST 21:29
PROVIDERS: ADMIT Internal Medicine; ATTEND Internal Medicine
PROC: 0T9B70Z Drainage of Bladder with Drainage Device, Via Natural or Artificial Opening (ICD-10-PCS; principal; 2020-08-14)
DX: I11.0 Hypertensive heart disease with heart failure (principal); N17.0 Acute kidney failure with tubular necrosis; J18.9 Pneumonia, unspecified organism; D68.59 Other primary thrombophilia; I69.351 Hemiplegia and hemiparesis following cerebral infarction affecting right dominant side; I50.43 Acute on chronic combined systolic (congestive) and diastolic (congestive) heart failure; K75.9 Inflammatory liver disease, unspecified; E78.5 Hyperlipidemia, unspecified; E03.9 Hypothyroidism, unspecified; F41.8 Other specified anxiety disorders; I48.91 Unspecified atrial fibrillation; I27.20 Pulmonary hypertension, unspecified; E83.42 Hypomagnesemia; E05.90 Thyrotoxicosis, unspecified without thyrotoxic crisis or storm; E83.51 Hypocalcemia; E66.9 Obesity, unspecified; E87.6 Hypokalemia; D50.9 Iron deficiency anemia, unspecified; E16.2 Hypoglycemia, unspecified; G47.30 Sleep apnea, unspecified; K21.9 Gastro-esophageal reflux disease without esophagitis; Z88.1 Allergy status to other antibiotic agents; Z88.5 Allergy status to narcotic agent; Z91.018 Allergy to other foods; Z91.048 Other nonmedicinal substance allergy status; Z90.710 Acquired absence of both cervix and uterus; Z79.899 Other long term (current) drug therapy; Z90.49 Acquired absence of other specified parts of digestive tract
CPT/HCPCS: 36415; 71045; 71250; 76700; 76770; 80048; 80053; 80061; 81001; 82436; 82962; 83036; 83540; 83550; 83605; 83735; 83880; 83935; 84100; 84132; 84133; 84145; 84300; 84439; 84443; 84484; 85025; 87040; 87086; 93005; 96374; 96375; 99285; G0378; J0456; J0696; J1940; J3475; J7050; U0003

== ENCOUNTER → 2021-02-10 | Outpatient (CLI) | payer MEDICARE ==
[~2021-02-10] MED LIST changes: +ACID1TAB7 PO; +ASPI-963 PO; +CALC600T60 PO; +CARV3.1212 PO; +DOCU-192 PO; +ESCI20TA8 PO; +FERR-51 PO; +FURO-93 PO; +FURO40TA6 PO; +GABA300C PO; +GABA600T7 PO; +LISI5TAB7 PO; +METH5TAB6 PO; +METO50TA82 PO; +MONT10TA17 PO; +MULT-449 PO; +POLY17PO5 PO; +POTA20TA6 PO
== END | disposition home or self-care (01) ==
LOC: WOUND 08:07
PROVIDERS: ATTEND Nurse Practitioner Family
DX: Z93.3 Colostomy status (principal); G89.29 Other chronic pain; I48.91 Unspecified atrial fibrillation; R27.0 Ataxia, unspecified; I10 Essential (primary) hypertension; E78.5 Hyperlipidemia, unspecified; E05.90 Thyrotoxicosis, unspecified without thyrotoxic crisis or storm; F41.9 Anxiety disorder, unspecified; J45.909 Unspecified asthma, uncomplicated; F32.9 Major depressive disorder, single episode, unspecified; K21.9 Gastro-esophageal reflux disease without esophagitis; G62.9 Polyneuropathy, unspecified; Z85.3 Personal history of malignant neoplasm of breast; Z90.49 Acquired absence of other specified parts of digestive tract; Z90.710 Acquired absence of both cervix and uterus; Z79.899 Other long term (current) drug therapy; Z91.040 Latex allergy status; Z79.82 Long term (current) use of aspirin; Z87.891 Personal history of nicotine dependence; Z86.73 Personal history of transient ischemic attack (TIA), and cerebral infarction without residual deficits
CPT/HCPCS: G0463

== ENCOUNTER 2021-03-20 17:30 | Emergency (ER) | payer MEDICARE ==
[~2021-03-20] VITALS: Ht 165.1 cm; Wt 75.0 kg
[~2021-03-20 17:30] MED LIST changes: +POTA-143 PO; -POTA20TA6 PO
[2021-03-20 18:31] LABS: BASOPHILS % (AUTO) 1 % (0-1); EOSINOPHILS % (AUTO) 2 % (1-7); LYMPHOCYTES % (AUTO) 16 % (22-44); MEAN CORPUSCULAR HEMOGLOBIN 28.3 pg (27.0-34.8); MEAN CORPUSCULAR HGB CONC 32.2 g/dL (32.4-35.8); MONOCYTES % (AUTO) 11 % (2-9); NEUTROPHILS % (AUTO) 70 % (42-75); PLATELET COUNT 206 x10^3/uL (130-400); RED BLOOD COUNT 4.35 x10^6/uL (3.82-5.3); RED CELL DISTRIBUTION WIDTH 16.9 % (9.6-15.2)
[2021-03-20 18:42] LABS: INTERNATIONAL NORMALIZED RATIO 1.49 (0.93-1.1); PROTHROMBIN TIME 15.6 Seconds (9.6-11.5)
[2021-03-20 18:43] LABS: ALBUMIN 2.3 g/dL (3.4-5.0); CALCIUM 7.9 mg/dL (8.5-10.1); CHLORIDE 95 mmol/L (98-107); CREATININE 0.63 mg/dL (0.55-1.02)
[2021-03-20 18:47] LABS: TROPONIN I < 0.015 ng/mL (0.000-0.045)
[2021-03-20 19:10] VITALS: BP 126/66
[2021-03-20 19:19] LABS: ANION GAP 9 mmol/L (5-15)
--- NOTE | 2021-03-20 19:30 | NUR ---
JADE GRADY (CHERI) [phone]
--- NOTE | 2021-03-20 19:30 | NUR ---
BIBA FOR SYNCOPAL EVENT. STATES PT WAS LYING IN BED "AND PASSED OUT BRIEFLY". DENIES HEAD INJURY. BP ON SCENE WAS 80'S/40'S WITH RA SATS IN THE 50'S%. VITALS INCREASED WIHTOUT FLUIDS TO 120/78 AND IS 95% RA. ALSO REPORTS BLACK AND TARRY STOOL AND VOMITING X 3 DAY. PT TAKES XARELTO. 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 PT IS WHEELCHAIR BOUND AT HOME.
--- NOTE | 2021-03-20 21:45 | NUR ---
Patient and spouse given discharge instructions and they have confirmed that they understand the instructions. Patient wheelchair bound, /caregiver here to drive pt home. NAD, all questions answered appropriately, denies additional needs at this time. No personal belongings left in room after discharge.
== END 2021-03-20 21:50 | disposition home or self-care (01) ==
LOC: ED 21:31
DX: R55 Syncope and collapse (principal); R47.1 Dysarthria and anarthria; I10 Essential (primary) hypertension
CPT/HCPCS: 36415; 80048; 82040; 84484; 85025; 85610; 86850; 86900; 93005; 99284